=== PATIENT | male | born 1965 | race African-American/Black ===

== ENCOUNTER 2021-07-07 19:57 | Emergency (ER) | payer MEDICAID ==
[~2021-07-07] VITALS: Ht 172.7 cm; Wt 98.0 kg
[2021-07-07] MEDS ORDERED: TETANUS, DIPHTHERIA, PERTUSSIS VAC/PF 0.5ML (>10YR OLD) IM ONE (22:45)
[2021-07-07] MEDS ORDERED: BO1 TP (22:50)
[2021-07-07 23:35] VITALS: BP 158/78
== END 2021-07-08 00:26 | disposition home or self-care (01) ==
LOC: ER 20:22
DX: S00.212A Abrasion of left eyelid and periocular area, initial encounter (principal); W22.8XXA Striking against or struck by other objects, initial encounter; Y93.89 Activity, other specified; Y92.89 Other specified places as the place of occurrence of the external cause; Y99.8 Other external cause status; E11.9 Type 2 diabetes mellitus without complications; I10 Essential (primary) hypertension; Z88.0 Allergy status to penicillin
CPT/HCPCS: 90471; 90715; 99283

== ENCOUNTER 2024-04-05 16:55 | Emergency (ER) | payer MEDICAID ==
[~2024-04-05] VITALS: Ht 172.7 cm; Wt 97.5 kg
[~2024-04-05 16:55] MED LIST: BO1 TP
[2024-04-05 17:11] VITALS: O2SAT 98
[2024-04-05] MEDS ORDERED: ACET-2708 MT (21:16)
[2024-04-05] MEDS ORDERED: NAPR-681 MT (21:16)
[2024-04-05 22:04] VITALS: BP 156/84; PULSE 78; RESP 18; O2SAT 97
[2024-04-05 22:11] VITALS: TEMP 98.2
[2024-04-05] MEDS: ACETAMINOPHEN 325MG TABLET PO STA (22:11)
== END 2024-04-05 22:13 | disposition home or self-care (01) ==
LOC: ER 16:55
DX: S40.011A Contusion of right shoulder, initial encounter (principal); Z88.0 Allergy status to penicillin; W01.0XXA Fall on same level from slipping, tripping and stumbling without subsequent striking against object, initial encounter; Y93.89 Activity, other specified; Y92.89 Other specified places as the place of occurrence of the external cause; Y99.8 Other external cause status
CPT/HCPCS: 73030; 99283

== ENCOUNTER 2024-07-05 22:40 | Emergency (ER) | payer MEDICAID ==
[~2024-07-05] VITALS: Ht 172.7 cm; Wt 99.0 kg
[~2024-07-05 22:40] MED LIST changes: +ACET-2708 MT; +NAPR-681 MT
[2024-07-05 22:49] VITALS: TEMP 37.3; O2SAT 99
[2024-07-05 23:24] VITALS: TEMP 99.2
[2024-07-05] MEDS: ACETAMINOPHEN 325MG TABLET PO ONE (23:24)
[2024-07-06] MEDS ORDERED: HYDR-4001 MT ×2 (02:24→02:26)
[2024-07-06] MEDS ORDERED: NAPR-1164 MT (02:24)
[2024-07-06 03:21] VITALS: BP 123/78; PULSE 76; RESP 18; O2SAT 96
== END 2024-07-06 03:21 | disposition home or self-care (01) ==
LOC: ER 22:40
DX: S82.892A Other fracture of left lower leg, initial encounter for closed fracture (principal); S00.83XA Contusion of other part of head, initial encounter; S43.402A Unspecified sprain of left shoulder joint, initial encounter; E11.9 Type 2 diabetes mellitus without complications; I10 Essential (primary) hypertension; Z79.1 Long term (current) use of non-steroidal anti-inflammatories (NSAID); Z88.0 Allergy status to penicillin; X50.1XXA Overexertion from prolonged static or awkward postures, initial encounter; Y93.89 Activity, other specified; Y92.89 Other specified places as the place of occurrence of the external cause; Y99.8 Other external cause status
CPT/HCPCS: 73030; 73610; 29515; 99284; 70486; Z7610